=== PATIENT | male | born 1965 | race Caucasian/White ===

== ENCOUNTER → 2016-10-14 | Outpatient (CLI) | payer OTHER ==
[2016-05-11 16:50] VITALS: BP 156/91
[~2016-10-14] MED LIST: HYDR-971 PO; NAPR550T PO
[2016-10-14 16:20] LABS: CALCIUM 9.2 mg/dL (8.5-10.1); CREATININE 1.3 mg/dL (0.7-1.3); GFR 58.2
[2016-10-15 06:16] LABS: PROSTATE SPECIFIC AG SCREEN 0.5 ng/mL (0.0-4.0); TESTOSTERONE TOTAL 214 ng/dL (348-1197)
== END | disposition home or self-care (01) ==
LOC: LAB 15:45
PROVIDERS: ATTEND Nurse Practitioner Occupational Health
DX: N40.1 Benign prostatic hyperplasia with lower urinary tract symptoms (principal)
CPT/HCPCS: 36415; 80048; 84403; G0103

== ENCOUNTER → 2016-11-15 | Outpatient (CLI) | payer OTHER ==
[2016-05-11 16:50] VITALS: BP 156/91
[2016-11-16 05:18] LABS: FSH 3.1 mIU/mL (1.5-12.4); LUTEINIZING HORMONE 2.6 mIU/mL (1.7-8.6); PROLACTIN 9.8 ng/mL (4.0-15.2)
== END | disposition home or self-care (01) ==
LOC: LAB 15:52
PROVIDERS: ATTEND Nurse Practitioner Occupational Health
DX: N40.1 Benign prostatic hyperplasia with lower urinary tract symptoms (principal)
CPT/HCPCS: 36415; 83001; 83002; 84146

== ENCOUNTER → 2016-11-27 | Outpatient (CLI) | payer OTHER ==
[2016-05-11 16:50] VITALS: BP 156/91
--- NOTE | 2016-11-27 16:20 | RAD ---
EXAM: Renal/retroperitonal ultrasound HISTORY: Lower urinary tract systems. Benign prostatic hypertrophy. COMPARISON: None. FINDINGS: Ultrasound of the kidneys, bladder and retroperitoneum was performed. The right kidney measures 12.2 cm. Cortical thickness and echogenicity are preserved. There is no hydronephrosis. A cyst superomedially appears benign and measures. 2.0 x 1.4 cm The left kidney measures 12.2 cm. Cortical thickness and echogenicity are preserved. There is no hydronephrosis. The prostate is enlarged measuring 5.2 x 4.2 x 3.8 cm. Volume is calculated at 44 mL. There is mild diffuse bladder wall thickening without clear focal lesions. IMPRESSION: 1. Moderate prostate hypertrophy with volume 44 mL. 2. Diffuse bladder wall thickening indicates chronic outlet obstruction or inflammation. Correlate with urinalysis. 3. Benign 2.0 cm right renal cyst.
== END | disposition home or self-care (01) ==
LOC: US 15:21
PROVIDERS: ATTEND Nurse Practitioner Occupational Health
DX: N40.0 Benign prostatic hyperplasia without lower urinary tract symptoms (principal); N28.1 Cyst of kidney, acquired
CPT/HCPCS: 76770

== ENCOUNTER 2018-11-30 10:15 | Emergency (ER) | payer OTHER ==
[~2018-11-30] VITALS: Ht 177.8 cm; Wt 99.8 kg
[~2018-11-30 10:15] MED LIST changes: +HYDR-3164 PO; -HYDR-971 PO; +NAPR-682 PO; -NAPR550T PO
[2018-11-30 12:44] VITALS: BP 188/82
[2018-11-30] MEDS ORDERED: HYDROcodone/APAP 5/325MG 1 TAB TABLET PO ONE (13:30)
[2018-11-30 13:33] LABS: BASO # 0.1 x10^3/uL (0.0-0.2); BASO % 1 % (0-3); EOS # 0.2 x10^3/uL (0.0-0.7); EOS % 1 % (0-3); HEMATOCRIT 45.8 % (39.0-53.0); HEMOGLOBIN 15.6 g/dL (13.0-17.5); LYMPH # 1.5 x10^3/uL (1.0-4.8); LYMPH % 12 % (24-48); MEAN CORPUSCULAR HEMOGLOBIN 31 pg (25-35); MEAN CORPUSCULAR HGB CONC 34 g/dL (31-37); MEAN CORPUSCULAR VOLUME 91 fL (79-100); MONO # 0.8 x10^3/uL (0.0-1.1); MONO % 6 % (0-9); NEUT # 9.6 x10^3uL (1.8-7.7); NEUT % 79 % (31-73); PLATELET COUNT 287 x10^3/uL (140-400); RED BLOOD COUNT 5.05 x10^6/uL (4.30-5.70); RED CELL DISTRIBUTION WIDTH 12.7 % (11.5-14.5); WHITE BLOOD COUNT 12.1 x10^3/uL (4.0-11.0)
--- NOTE | 2018-11-30 13:35 | PHYS DOC ---
Past Medical History Past Medical History: Hypertension, Pneumonia Past Surgical History: Cholecystectomy, Other Additional Past Surgical Histo: right foot Alcohol Use: None Drug Use: None Adult General Chief Complaint Chief Complaint: ELBOW PROBLEM HPI HPI 53-year-old male presents to ER via POV for complaints of sudden onset of right elbow pain which woke him at 2 AM. Pt denies any pain when he had gone to bed. Patient states he was treated yesterday at an urgent care for pink eye and "bacterial pneumonia". Patient states he has had cold-like symptoms with productive cough having green phlegm with sinus congestion. Patient states he was started on azithromycin for the pneumonia and provided with antibiotic eyedrops for the conjunctivitis. Patient states his eyedrops have improved his e ye irritation. Patient states he does continue to have a cough. Patient reports he woke up around 2 AM due to the sudden onset of right arm pain and had swelling in the right upper extremity. Patient denies any known injury. Patient states he had had previous issues with his right elbow in the past due to an IV in the right arm which had caused irritation. Patient reports he took Excedrin 2 for the pain with no relief in symptoms so he came to the ER for evaluation. Patient denies skin discoloration, fever, or inability to move right upper extremity (does have decreased range of motion in right elbow due to pain). Review of Systems Review of Systems Constitutional: Denies fever or chills [] Eyes: Denies change in visual acuity, redness, or eye pain [] HENT: Denies nasal congestion or sore throat [] Respiratory: Denies shortness of breath. Reports cough Cardiovascular: Denies CP/palpitations GI: Denies abdominal pain, nausea, vomiting, bloody stools or diarrhea [] : Denies dysuria or hematuria [] Musculoskeletal: Denies back/neck pain. Reports rt elbow pain/swelling and increased pain w/movement of rt elbow Integument: Denies rash or skin lesions [] Neurologic: Denies headache, focal weakness or sensory changes [] Endocrine: Denies polyuria or polydipsia [] All other systems were reviewed and found to be within normal limits, except as documented in this note. Current Medications Current Medications Current Medications Medications (Trade) Dose Ordered Sig/Haydee Start Time Stop Time Status Last Admin Dose Admin Acetaminophen/ Hydrocodone Bitart (Lortab 5/325) 1 tab 1X ONCE 2/25/19 13:30 11/30/18 13:31 DC 11/30/18 13:36 1 TAB Albuterol/ Ipratropium (Duoneb) 3 ml 1X ONCE 11/30/18 14:30 11/30/18 14:31 DC 11/30/18 14:42 3 ML Methocarbamol (Robaxin) 750 mg 1X ONCE 11/30/18 15:45 11/30/18 15:46 DC 11/30/18 15:47 750 MG Prednisone (Prednisone) 50 mg 1X ONCE 11/30/18 14:30 11/30/18 14:31 DC 11/30/18 14:57 50 MG Allergies Allergies Allergies Coded Allergies Type Severity Reaction Last Updated Verified No Known Drug Allergies 05/11/16 No Physical Exam Physical Exam Constitutional: Well developed, well nourished, no acute distress, non-toxic appearance. [] HENT: Normocephalic, atraumatic, oropharynx moist, nose normal. [] Eyes: Pupils equal, conjunctiva normal, no discharge. [] Neck: Normal range of motion, no tenderness, supple, no stridor. [] Cardiovascular:Heart rate regular rhythm, no murmur [] Lungs & Thorax: Bilateral breath sounds clear to auscultation- diminished in bases. Resp. equal/nonlabored. Speaking in full sentences Skin: Warm, dry Back: No tenderness, full ROM Extremities: No cyanosis, no clubbing. 2+ radial bilat. Cap refill brisk. Tender on palp. anterior/posterior elbow with swelling at the joint- no palp. deformity/crepitus. Decreased ROM rt elbow with c/o increased pain on movements. No tenderness rt shoulder/wrist/hand- full ROM. Skin color symmetric in bilat. upper extremities Neurologic: Alert and oriented X 3, normal motor function, normal sensory func tion, no focal deficits noted. [] Psychologic: Affect normal, judgement normal, mood normal. [] Current Patient Data Vital Signs Lab Values Laboratory Tests Test 11/30/18 13:15 White Blood Count 12.1 x10^3/uL (4.0-11.0) H Red Blood Count 5.05 x10^6/uL (4.30-5.70) Hemoglobin 15.6 g/dL (13.0-17.5) Hematocrit 45.8 % (39.0-53.0) Mean Corpuscular Volume 91 fL (79-100) Mean Corpuscular Hemoglobin 31 pg (25-35) Mean Corpuscular Hemoglobin Concent 34 g/dL (31-37) Red Cell Distribution Width 12.7 % (11.5-14.5) Platelet Count 287 x10^3/uL (140-400) Neutrophils (%) (Auto) 79 % (31-73) H Lymphocytes (%) (Auto) 12 % (24-48) L Monocytes (%) (Auto) 6 % (0-9) Eosinophils (%) (Auto) 1 % (0-3) Basophils (%) (Auto) 1 % (0-3) Neutrophils # (Auto) 9.6 x10^3uL (1.8-7.7) H Lymphocytes # (Auto) 1.5 x10^3/uL (1.0-4.8) Monocytes # (Auto) 0.8 x10^3/uL (0.0-1.1) Eosinophils # (Auto) 0.2 x10^3/uL (0.0-0.7) Basophils # (Auto) 0.1 x10^3/uL (0.0-0.2) Sodium Level 143 mmol/L (136-145) Potassium Level 4.0 mmol/L (3.5-5.1) Chloride Level 102 mmol/L (98-107) Carbon Dioxide Level 31 mmol/L (21-32) Anion Gap 10 (6-14) Blood Urea Nitrogen 10 mg/dL (8-26) Creatinine 1.2 mg/dL (0.7-1.3) Estimated GFR (Cockcroft-Gault) 63.3 Glucose Level 104 mg/dL (70-99) H Lactic Acid Level 1.4 mmol/L (0.4-2.0) Calcium Level 9.9 mg/dL (8.5-10.1) Laboratory Tests 11/30/18 13:15 Laboratory Tests 11/30/18 13:15 Microbiology 11/30/18 Blood Culture - Final, Complete NO GROWTH AFTER 5 DAYS Microbiology 11/30/18 Blood Culture - Final, Complete NO GROWTH AFTER 5 DAYS EKG EKG [] Radiology/Procedures Radiology/Procedures PROCEDURE: CHEST PA & LATERAL EXAM: Chest, 2 views. HISTORY: Cough. COMPARISON: None. FINDINGS: 2 views of the chest are obtained. There is no infiltrate, pleural effusion or pneumothorax. The heart is normal in size. IMPRESSION: No acute pulmonary finding. Electronically signed by: Jyotsna Souza MD (11/30/2018 1:49 PM) [id number] DICTATED and SIGNED BY: JYOTSNA SOUZA MD DATE: 11/30/18 3564 PROCEDURE: ELBOW RIGHT 3V RIGHT ELBOW AP LATERAL AND OBLIQUE Clinical Indication: PATIENT SAID, "NO KNOWN INJURY". PATIENT HAD TROUBLE BENDING ELBOW DUE TO PAIN. PT SAID, "IT STARTED AROUND 2AM. Comparison: None. Findings: There is no acute fracture or dislocation. No evidence of joint effusion. Large olecranon enthesophyte. There are enthesophytes of the medial and lateral epicondyles. The mineralization is normal. No bony erosion is seen. There is no radiopaque foreign body. The soft tissues are normal. IMPRESSION: No acute bone abnormality. Electronically signed by: Steven Onofre MD (11/30/2018 1:51 PM) [id number] DICTATED and SIGNED BY: STEVEN ONOFRE MD DATE: 11/30/18 1349 Course & Med Decision Making Course & Med Decision Making Pertinent Labs and Imaging studies reviewed. (See chart for details) 1420: Reevaluation and pt reports following he has had improvement in his symptoms following treatments received. Patient had DuoNeb treatment and on reexamination he has increased air movement throughout all lung lang. Respirations are equal and nonlabored. Chest x-ray was obtained with no acute findings reported. X-ray of rt elbow also obtained with no acute findings. X-ray results were discussed with patient. Lactic acid was NL- WBCs were 12.1 with pt currently on antibiotics for pneumonia. With improved symptoms patient states he is comfortable with home discharge without further care or monitoring. He plans to follow-up with his primary care physician for reevaluation. Will apply Kishore wrap to left elbow and patient advised if elbow pain continues follow-up advised with orthopedics for reevaluation and further care. Pt remains PMS intact in rt upper extremity. Pt is in no distress and remains nontoxic in appearance. Education provided on s&s to return to ER for and d/c instructions were discussed. Will provide Robaxin, Rougon, and prednisone Rxs with d/c paperwork. Dragon Disclaimer Dragon Disclaimer This electronic medical record was generated, in whole or in part, using a voice recognition dictation system. Departure Departure Impression: Primary Impression: Elbow pain, right Additional Impression: Cough Disposition: 01 HOME, SELF-CARE Condition: STABLE Referrals: ESTRELLA MALDONADO MD (PCP) Patient Instructions: Cough, Adult, Elbow Injury, Musculoskeletal Pain Additional Instructions: Follow-up with orthopedic doctor for re-evaluation and further care. Perform range of motion with your elbow daily to prevent joint lock. Ice and/or heat compress to left elbow every 3-4 hours for 20-30 minutes at a time. You received a narcotic medication (Rougon) while in the ER and are being provided with a prescription if pain is not improved with prednisone prescr iption. You can also take over the counter ibuprofen and/or tylenol as directed on container. Scripts Methocarbamol (ROBAXIN-750) 750 Mg Tablet 1 TAB PO BID, #12 TAB 0 Refills Prov: JUANITA OWENS APRN 11/30/18 Hydrocodone/Apap 5-325 (NORCO 5-325 TABLET) 1 Each Tablet 1 TAB PO PRN Q6HRS PRN for PAIN, #8 TAB 0 Refills No drinking alcohol or driving if taking this medication Prov: JUANITA OWENS APRN 11/30/18 Prednisone (PREDNISONE) 50 Mg Tablet 1 TAB PO DAILY, #4 TAB 0 Refills Start on 12/01/18 Prov: JUANITA OWENS APRN 11/30/18 Problem Qualifiers JUANITA OWENS APRN Nov 30, 2018 13:35
[2018-11-30 13:41] LABS: CALCIUM 9.9 mg/dL (8.5-10.1); CREATININE 1.2 mg/dL (0.7-1.3); GFR 63.3
--- NOTE | 2018-11-30 13:52 | RAD ---
EXAM: Chest, 2 views. HISTORY: Cough. COMPARISON: None. FINDINGS: 2 views of the chest are obtained. There is no infiltrate, pleural effusion or pneumothorax. The heart is normal in size. IMPRESSION: No acute pulmonary finding. Electronically signed by: Jyotsna Epstein MD (11/30/2018 1:49 PM) [place] [id number]
--- NOTE | 2018-11-30 13:54 | RAD ---
RIGHT ELBOW AP LATERAL AND OBLIQUE Clinical Indication: PATIENT SAID, "NO KNOWN INJURY". PATIENT HAD TROUBLE BENDING ELBOW DUE TO PAIN. PT SAID, "IT STARTED AROUND 2AM. Comparison: None. Findings: There is no acute fracture or dislocation. No evidence of joint effusion. Large olecranon enthesophyte. There are enthesophytes of the medial and lateral epicondyles. The mineralization is normal. No bony erosion is seen. There is no radiopaque foreign body. The soft tissues are normal. IMPRESSION: No acute bone abnormality. Electronically signed by: Steven Onofre MD (11/30/2018 1:51 PM) [id number]
[2018-11-30] MEDS ORDERED: IPRATRPIUM/ALBUTEROL 0.5/2.5MG 3 ML NEBU. NEB ONE (14:30)
[2018-11-30] MEDS ORDERED: predniSONE 10 MG TABLET PO ONE (14:30)
[2018-11-30] MEDS ORDERED: PRED50TA PO (15:29)
[2018-11-30] MEDS ORDERED: HYDR-3164 PO (15:29)
[2018-11-30] MEDS ORDERED: METHOCARBAMOL 750 MG TABLET PO ONE (15:45)
[2018-11-30] MEDS ORDERED: METH-38 PO (16:21)
== END 2018-11-30 16:47 | disposition home or self-care (01) ==
LOC: ER 10:15
DX: M25.521 Pain in right elbow (principal); R05 Cough; I10 Essential (primary) hypertension
CPT/HCPCS: 36415; 71046; 73080; 80048; 83605; 85025; 87040; 94640; 99284; J7512; J7620